=== PATIENT | female | born 1985 | race Hispanic/Latino ===

== ENCOUNTER 2017-07-09 19:24 | Emergency (ER) | payer OTHER ==
[2017-07-09] MEDS ORDERED: Povidone Iodine Topical 10% Sol ONE (20:33)
--- NOTE | 2017-07-09 20:44 | ED PDOC ---
- ECG O2 Sat by Pulse Oximetry: 98 (RA) Pulse Ox Interpretation: Normal Disposition - Disposition
--- NOTE | 2017-07-09 21:08 | ED PDOC ---
HPI: General Adult Time Seen by Provider: 07/09/17 19:53 Chief Complaint (Nursing): Anxiety Chief Complaint (Provider): Sensory problem History Per: Patient History/Exam Limitations: no limitations Additional Complaint(s): Patient is a 31 y/o female with a history of panic attacks presenting to the emergency department for four episodes of a cold, tingling sensation today that starts in the back of her head and radiates down to the back of her body. Also notes an associated weird sensation to her tongue and a cough. Reports taking cough medicine. Denies pain, fever, headache, chest pain, palpitation, nausea, vomiting, diarrhea, recent travel, or other complaints. PCP: in [facility] Past Medical History Reviewed: Historical Data, Nursing Documentation, Vital Signs Vital Signs: Last Vital Signs Temp 98 F 07/09/17 22:52 Pulse 65 07/09/17 22:52 Resp 18 07/09/17 22:52 BP 129/72 07/09/17 22:52 Pulse Ox 98 07/09/17 22:53 - Family History Family History: States: Unknown Family Hx - Allergies Allergies/Adverse Reactions: Allergies Allergy/AdvReac Type Severity Reaction Status Date / Time No Known Allergies Allergy Verified 07/09/17 19:42 Review of Systems ROS Statement: Except As Marked, All Systems Reviewed And Found Negative Constitutional: Negative for: Fever Cardiovascular: Negative for: Chest Pain Respiratory: Positive for: Cough. Negative for: Shortness of Breath Gastrointestinal: Negative for: Nausea, Vomiting, Abdominal Pain, Diarrhea Musculoskeletal: Positive for: Other (tingling bodily sensation) Neurological: Negative for: Headache Physical Exam - Reviewed Nursing Documentation Reviewed: Yes Vital Signs Reviewed: Yes - Physical Exam Comments: GENERAL APPEARANCE: Patient is awake, alert, oriented x 3, in no acute distress. SKIN: Warm, dry; (-) cyanosis; (-) rash. HEAD: (-) scalp swelling or tenderness, (-) temporal artery tenderness. EYES: (-) conjunctival pallor, (-) scleral icterus. ENMT: (-) sinus tenderness; mucous membranes moist. NECK: (-) tenderness, (-) stiffness, (-) meningismus, (-) lymphadenopathy. CHEST AND RESPIRATORY: (-) rales, (-) rhonchi, (-) wheezes; breath sounds equal bilaterally. HEART AND CARDIOVASCULAR: (-) irregularity; (-) murmur, (-) gallop. ABDOMEN AND GI: Soft; (-) tenderness. EXTREMITIES: (-) deformity. NEURO AND PSYCH: Mental status as above. 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 Strength and DTRs symmetric. Babinski normal bilaterally. - Laboratory Results Result Diagrams: 07/09/17 21:23 07/09/17 21:04 - ECG O2 Sat by Pulse Oximetry: 98 (RA) Pulse Ox Interpretation: Normal Medical Decision Making Medical Decision Making: Time: 20:58 Initial impression: Sensory issue Initial plan: EKG CMP ED Urine CBC Reevaluation 21:10 Uhcg (-) EKG: NSR at 65 bpm, (-) acute ST changes, as read by BRUNO. Labs reviewed, white count of 14 was noted, hence chest x-ray, rapid flu and ua was ordered. CXR : NAD, as read by BRUNO Rapid flu : negative UA : shows evidence of ketones but no evidence of infection On reevaluation, patient is resting comfortably in no acute distress. Patient has no complaints at this time, denies headache, dizziness, chest pain or numbness. On exam, patient remains awake, alert, oriented 3. Repeat neuro exam shows no acute focal findings. VS T 98 P 65 BP 129/72 O2sat 100%RA. ----- Based on history, exam and diagnostic results plan will be for outpatient follow -up with PMD. Advised to follow up with primary care physician in 1-2 days without fail. Return to the emergency room at any time for any new or worsening symptoms. Patient states she fully agrees with and understands discharge instructions. States that she agrees with the plan and disposition. Verbalized and repeated discharge instructions and plan. I have given the patient opportunity to ask any additional questions. ~ Scribe Attestation: Documented by Anita Sims, acting as a scribe for BRUNO Shaw. Provider Scribe Attestation: All medical record entries made by the Scribe were at my direction and personally dictated by me. I have reviewed the chart and agree that the record accurately reflects my personal performance of the history, physical exam, medical decision making, and the department course for this patient. I have also personally directed, reviewed, and agree with the discharge instructions and disposition. Disposition - Clinical Impression Clinical Impression: Paresthesia - Patient ED Disposition Is Patient to be Admitted: No Counseled Patient/Family Regarding: Studies Performed, Diagnosis, Need For Followup - Disposition Disposition: Routine/Home Disposition Time: 22:30 Condition: IMPROVED Additional Instructions: Thank you for letting us take care of you today. You were treated for paresthesia, viral illness. The emergency medical care you received today was directed at your acute symptoms. It may take several days for your symptoms to resolve. Return to the Emergency Department if your symptoms worsen, do not improve, or if you have any other problems. Please contact your doctor in 2 days for re-evaluation and follow up. Bring any paperwork you were given at discharge with you along with any medications you are taking to your follow up visit. Our treatment cannot replace ongoing medical care by a primary care provider (PCP) outside of the emergency department. Thank you for allowing the [facility] team to be part of your care today. 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
[2017-07-09 21:27] LABS: BASO # 0.1 K/uL (0.0-0.2); BASO % 0.5 % (0.0-2.0); EOS # 0.1 K/uL (0.0-0.7); EOS % 0.5 % (0.0-4.0); HEMOGLOBIN 13.4 g/dL (12.0-16.0); LYMPH # 2.8 K/uL (1.0-4.3); LYMPH % 19.6 % (20.0-40.0); MEAN CELL VOLUME 86.8 fl (81.0-99.0); MEAN CORPUSCULAR HEMOGLOBIN 29.4 pg (27.0-31.0); MEAN CORPUSCULAR HGB CONC 33.8 g/dL (33.0-37.0); MEAN PLATELET VOLUME 8.4 fl (7.2-11.7); MONO # 0.6 K/uL (0.0-0.8); MONO % 4.5 % (0.0-10.0); NEUT # 10.5 K/uL (1.8-7.0); NEUT % 74.9 % (50.0-75.0); NRBC % 0.1 % (0.0-0.0); RBC 4.57 Mil/uL (3.80-5.20); RED CELL DISTRIBUTION WIDTH 12.2 % (11.5-14.5)
[2017-07-09 21:34] LABS: ALB/GLOB RATIO 1.2 (1.0-2.1); ALBUMIN 4.3 g/dL (3.5-5.0); ALT/SGPT 39 U/L (9-52); AST/SGOT 19 U/L (14-36); BLOOD UREA NITROGEN 9 mg/dl (7-17); CALCIUM 9.6 mg/dL (8.4-10.2); GFR AFRICAN-AMERICAN > 60; GFR NON-AFRICAN AMERICAN > 60
[2017-07-09 22:36] LABS: SQUAMOUS EPITHIAL 19 /hpf (0-5); URINE BACTERIA RARE (<OCC); URINE BILIRUBIN NEGATIVE (NEGATIVE); URINE BLOOD NEGATIVE (NEGATIVE); URINE CLARITY CLOUDY (Clear); URINE COLOR YELLOW (YELLOW); URINE GLUCOSE (UA) NEG (Normal); URINE LEUKOCYTE ESTERASE NEG Leu/uL (Negative); URINE NITRATE NEGATIVE (NEGATIVE); URINE PROTEIN 30 mg/dL (NEGATIVE); URINE UROBILINOGEN 0.2-1.0 mg/dL (0.2-1.0)
[2017-07-09 22:53] VITALS: BP 129/72; PULSE 65; RESP 18; TEMP 98; O2SAT 98
--- NOTE | 2017-07-10 10:05 | RAD ---
HISTORY: cough COMPARISON: No prior. TECHNIQUE: Chest PA and lateral FINDINGS: LUNGS: No active pulmonary disease. PLEURA: No significant pleural effusion identified. No pneumothorax apparent. CARDIOVASCULAR: Normal. OSSEOUS STRUCTURES: No significant abnormalities. VISUALIZED UPPER ABDOMEN: Normal. OTHER FINDINGS: None. IMPRESSION: No active disease.
--- NOTE | 2017-07-10 18:10 | CARD ---
APPROVED REPORT EKG Measurement Heart [id number] <Conclusion> Normal sinus rhythm Normal ECG
== END 2017-07-09 22:55 | disposition home or self-care (01) ==
LOC: H.ER 19:24
DX: R20.2 Paresthesia of skin (principal); Z86.59 Personal history of other mental and behavioral disorders

== ENCOUNTER 2017-10-09 23:20 | Emergency (ER) | payer OTHER ==
[2017-10-09 23:30] VITALS: TEMP 98.3; O2SAT 96
[2017-10-10 01:01] LABS: BASO % 0.5 % (0.0-2.0); EOS # 0.1 K/uL (0.0-0.7); EOS % 1.1 % (0.0-4.0); HEMOGLOBIN 13.5 g/dL (12.0-16.0); LYMPH # 2.4 K/uL (1.0-4.3); LYMPH % 25.9 % (20.0-40.0); MEAN CELL VOLUME 87.7 fl (81.0-99.0); MEAN CORPUSCULAR HEMOGLOBIN 30.2 pg (27.0-31.0); MEAN CORPUSCULAR HGB CONC 34.4 g/dL (33.0-37.0); MEAN PLATELET VOLUME 8.4 fl (7.2-11.7); MONO # 0.5 K/uL (0.0-0.8); MONO % 5.2 % (0.0-10.0); NEUT # 6.2 K/uL (1.8-7.0); NEUT % 67.3 % (50.0-75.0); RBC 4.48 Mil/uL (3.80-5.20); RED CELL DISTRIBUTION WIDTH 12.6 % (11.5-14.5); WHITE BLOOD COUNT 9.2 K/uL (4.8-10.8)
--- NOTE | 2017-10-10 01:03 | ED PDOC ---
HPI: Chest Pain Time Seen by Provider: 10/09/17 23:53 Chief Complaint (Nursing): Chest Pain Chief Complaint (Provider): Chest Pain History Per: Patient History/Exam Limitations: no limitations Onset/Duration Of Symptoms: Hrs (started at 8pm) Current Symptoms Are (Timing): Better Quality: Tightness Additional Complaint(s): 32 y/o female with a history of anxiety presents to the ED with chest pain. Patient states she feels tightness on the left side of her chest radiating to her left arm. She felt anxious due to symptoms which brought her into ED. Patient states she felt some numbness in arm and hand which resolved but feels slight pressure still on left side of chest upon arrival. She also has difficulty taking deep breaths and has felt some stiffness in her neck past few weeks along with intermittent calf pain with no swelling. Of note, patient sees a therapist for anxiety. Patient takes control for PCOS. PMD: None provided Past Medical History Reviewed: Historical Data, Nursing Documentation, Vital Signs Vital Signs: Last Vital Signs Temp 98.3 F 10/09/17 23:27 Pulse 67 10/10/17 03:49 Resp 20 10/10/17 03:49 BP 128/85 10/10/17 03:49 Pulse Ox 96 10/10/17 03:52 - Medical History PMH: Anxiety - Surgical History Surgical History: No Surg Hx - Family History Family History: States: Diabetes, Hypertension, Other Other Family History: anxiety - Social History Current smoker - smoking cessation education provided: No (uses vape pen with tobacco) Ex-Smoker (has not smoked in the last 12 months): No Alcohol: Social Drugs: Denies - Immunization History Hx Tetanus Toxoid Vaccination: No Hx Influenza Vaccination: No - Home Medications Home Medications: Ambulatory Orders Medication Instructions Recorded Sulfamethoxazole/Trimethoprim 1 tab PO BID #6 tab 07/13/17 [Bactrim DS 800 mg-160 mg] - Allergies Allergies/Adverse Reactions: Allergies Allergy/AdvReac Type Severity Reaction Status Date / Time No Known Allergies Allergy Verified 10/09/17 23:27 Review of Systems ROS Statement: Except As Marked, All Systems Reviewed And Found Negative Cardiovascular: Positive for: Chest Pain (localized to left side with tightness radiated to left arm) Respiratory: Positive for: Other (difficulty taking deep breaths) Musculoskeletal: Positive for: Neck Pain (stiffness felt for the past few weeks) , Other (intermittent calf pain) Neurological: Positive for: Numbness (in left arm and hand) Psych: Positive for: Anxiety Physical Exam - Reviewed Nursing Documentation Reviewed: Yes Vital Signs Reviewed: Yes - Physical Exam Appears: Positive for: Well, No Acute Distress Head Exam: Positive for: ATRAUMATIC, NORMOCEPHALIC Skin: Positive for: Warm, Dry Eye Exam: Positive for: EOMI, PERRL ENT: Negative for: Pharyngeal Erythema, Tonsillar Exudate Neck: Positive for: Painless ROM, Supple Cardiovascular/Chest: Positive for: Regular Rate, Rhythm. Negative for: Murmur Gastrointestinal/Abdominal: Positive for: Soft. Negative for: Tenderness Back: Positive for: Normal Inspection. Negative for: Decreased ROM Extremity: Positive for: Normal ROM. Negative for: Deformity Lymphatic: Negative for: Adenopathy Neurologic/Psych: Positive for: Alert, Mood/Affect (anxious mood and affect). Negative for: Motor/Sensory Deficits - Laboratory Results Result Diagrams: 10/10/17 00:48 10/10/17 00:48 - ECG ECG Rhythm: Positive for: Normal QRS, Normal ST Segment, Sinus Rhythm Rate: 72 O2 Sat by Pulse Oximetry: 96 (RA) Pulse Ox Interpretation: Normal Medical Decision Making Medical Decision Making: Time: 23:27 Impression: Chest Pain Differential Diagnosis: Anxiety, heart burn, electrolyte abnormality, or costochondritis. Initial Plan: * EKG * CMP * Magnesium Test * Phosphorus Test * Thyroid Stimulation Test * Troponin I Test * CBC * D Dimer * Chest X-Rays Scribe Attestation: Documented by Bashir Barnes acting as a scribe for Jona Casey MD. Scribe Attestation: All medical record entries made by the Scribe were at my direction and personally dictated by me. I have reviewed the chart and agree that the record accurately reflects my personal performance of the history, physical exam, medical decision making, and the department course for this patient. I have also personally directed, reviewed, and agree with the discharge instructions and disposition. Disposition - Clinical Impression Clinical Impression: Atypical chest pain - Patient ED Disposition Is Patient to be Admitted: Transfer of Care - Disposition Disposition: Transfer of Care Disposition Time: 01:00 Condition: STABLE Patient Signed Over To: Aleksandar Avitia Handoff Comments: Pending ER workup, reassessment and final ER disposition
--- NOTE | 2017-10-10 01:24 | ED PDOC ---
- Laboratory Results Result Diagrams: 10/10/17 00:48 10/10/17 00:48 - ECG O2 Sat by Pulse Oximetry: 96 (RA) Pulse Ox Interpretation: Normal Medical Decision Making Medical Decision Makin Patient endorsed to me by Dr. Tenorio pending workup and re-eval. 330 Patient is feeling much improved, no longer having chest pain. Workup negative , will refer to PMD, return precautions given. Patient's vitals normal, appearing well. Disposition - Clinical Impression Clinical Impression: Atypical chest pain - POA Present On Arrival: None - Disposition Referrals: VICENTE DAVIS DO [Other] Disposition: Routine/Home Disposition Time: 03:41 Condition: IMPROVED Instructions: Chest Pain That Is Not Caused by the Heart (DC) Forms: [employer] (Turkmen)
[2017-10-10 01:28] LABS: ALB/GLOB RATIO 1.1 (1.0-2.1); ALBUMIN 4.1 g/dL (3.5-5.0); ALT/SGPT 30 U/L (9-52); AST/SGOT 19 U/L (14-36); BLOOD UREA NITROGEN 12 mg/dl (7-17); GFR AFRICAN-AMERICAN > 60; GFR NON-AFRICAN AMERICAN > 60
[2017-10-10 03:54] VITALS: BP 128/85; RESP 20
--- NOTE | 2017-10-10 08:36 | RAD ---
HISTORY: COMPARISON: 07/09/2017. TECHNIQUE: Chest PA and lateral FINDINGS: LINES AND TUBES: None. LUNG AND PLEURA: The lungs are well inflated and clear. No pleural effusions or pneumothorax. HEART AND MEDIASTINUM: The heart is not enlarged. The hilar and mediastinal contours are within normal limits. SKELETAL STRUCTURES: The bony structures are within normal limits for the patient's age. VISUALIZED UPPER ABDOMEN: Normal. OTHER FINDINGS: None. IMPRESSION: No active pulmonary disease.
--- NOTE | 2017-10-10 12:33 | CARD ---
APPROVED REPORT EKG Measurement Heart [id number] <Conclusion> Normal sinus rhythm with sinus arrhythmia Normal ECG
[2017-10-12 15:03] VITALS: PULSE 72
== END 2017-10-10 03:49 | disposition home or self-care (01) ==
LOC: H.ER 23:20
DX: R07.9 Chest pain, unspecified (principal); Z87.891 Personal history of nicotine dependence; F41.9 Anxiety disorder, unspecified; E28.2 Polycystic ovarian syndrome